=== PATIENT | male | born 1960 | race Caucasian/White ===

== ENCOUNTER → 2016-10-05 | Outpatient (CLI) | payer MEDICAID, OTHER ==
[~2016-10-05] MED LIST: ACET500C PO; ALEV220T14 PO; ASPI325T PO; EXTR500C PO; FOLI1 PO; LEVE500 PO; METH2.5 INJ; PRED20 PO; RANI150T PO; ULTR50TA PO; Z.0.WALKERFOLD
[2016-10-05 14:52] LABS: BICARBONATE 24.7 MEQ/L (21.0-32.0); POTASSIUM 3.8 MEQ/L (3.5-5.1)
== END ==
LOC: CLAB 14:02
PROVIDERS: ATTEND Surgery
DX: I71.4 Abdominal aortic aneurysm, without rupture (principal)
CPT/HCPCS: 36415; 80048

== ENCOUNTER → 2016-10-18 | Outpatient (CLI) | payer MEDICAID, OTHER ==
[~2016-10-18] MED LIST changes: +IOHEXOL 350 MG/ML 10 ML VIAL (for RAD DIAG) IV ONE
--- NOTE | 2016-10-18 15:45 | RADRPT ---
EXAM DATE/TIME: 10/18/2016 13:30 [facility] COMPARISON: CT ABDOMEN & PELVIS W CONTRAST, April 07, 2016, 16:06. CT ABDOMEN & PELVIS W CONTRAST, April 13 016, 9:10. CT BRAIN W/O CONTRAST, June 07, 2016, 16:00. INDICATIONS : Aortic aneurysm. IV CONTRAST: 94 cc Omnipaque 350 (iohexol) IV RADIATION DOSE: 11.25 CTDIvol (mGy) MEDICAL HISTORY : Cardiovascular disease. SURGICAL HISTORY : Appendectomy. ENCOUNTER: Initial ACUITY: 1 month PAIN SCALE: 0/10 LOCATION: Bilateral abdomen TECHNIQUE: Volumetric scanning was performed using a multi-row detector CT scanner. The data was post processed with a variety of visualization algorithms including full volume maximum intensity projection, multi -planar sliding thin slab reformation, curved planar reformation, and surface rendering techniques. Using automated exposure control and adjustment of the mA and/or kV according to patient size, radiat ion dose was kept as low as reasonably achievable to obtain optimal diagnostic quality images. FINDINGS: Abdominal aorta: The celiac and SMA origins are widely patent. There are single renal arteries bilaterally. The renal arteries are widely patent. The infrarenal aorta is aneurysmal with a maximum dimension of 5.0 cm. Th e aneurysmal dilation extends down to but does not involve the iliac bifurcation. The KYA is small bu t patent. Pelvis: The common iliac, internal iliac and external iliac circulation demonstrates only mild atheroscleroti c plaquing and is widely patent throughout its course. Right leg: The common femoral and profunda femoral are widely patent. There is an area of mild stenosis at the o rigin of the superficial femoral. The remainder of the SFA is widely patent. The popliteal is widely patent above and below the knee. Distally, all 3 trifurcation vessels are patent. Left leg: The left common femoral and profunda femoral are widely patent. There is minimal stenosis at the orig in of the superficial femoral. The remainder of the SFA and popliteal are widely patent. Distally, th ere is three-vessel runoff down into the foot. CT source data: The appearance of the liver is within normal limits. The examination demonstrates numerous nonenhanci ng low attenuation lesions distributed throughout the spleen. Differential considerations should incl ude sarcoid, inflammatory/infectious processes such as early granulomatous infection and/or fungal in fection. Metastatic disease is a less likely consideration but is not definitively excluded. This was present on previous CT dated 04/07/16 but appears more evident on today's study. This is likely due t o the arterial phase of contrast. There is no retroperitoneal adenopathy. Incidental note is made of multiple bladder diverticuli. CONCLUSION: 1. There is a 5 cm infrarenal aortic aneurysm. The configuration would be amenable to endovascular re pair. 2. Multiple low attenuation lesions distributed throughout the spleen. Differential considerations ar e given above. Anselmo Archer MD on October 18, 2016 at 15:34 Board Certified Radiologist. This report was verified electronically.
== END ==
LOC: HRAD 12:18
PROVIDERS: ATTEND Surgery
DX: I71.4 Abdominal aortic aneurysm, without rupture (principal)
CPT/HCPCS: 75635; Q9967

== ENCOUNTER 2016-12-20 10:35 | Inpatient (IN) | payer MEDICAID, OTHER ==
[~2016-12-20] VITALS: Ht 172.7 cm; Wt 92.1 kg
[2016-12-20] MEDS ORDERED: ACET500C PO (11:04)
[2016-12-20] MEDS ORDERED: ASPI325T PO (11:04)
[2016-12-21] VITALS (11 sets, daily range): BP systolic 102–135; BP diastolic 68–87; PULSE 64–89; RESP 15–18; TEMP 97.6–98.2; O2SAT 94–98
[2016-12-21] MEDS ORDERED: INSULIN HUMAN REGULAR 1,000 UNITS/10 ML VIAL SQ PRN (06:45)
[2016-12-21] MEDS ORDERED: CHLORHEXIDINE GLUCONATE 2 % 1 PACK (2 CLOTHS) TOPICAL PRN (06:45)
[2016-12-21] MEDS ORDERED: LACTATED RINGER'S 1000 ML IV PRN (06:45)
[2016-12-21] MEDS ORDERED: POVIDONE IODINE 5% (ANTISEPSIS KIT) 4 APPLICATIONS EACH NARE PRN (06:45)
[2016-12-21] MEDS ORDERED: METOPROLOL TARTRATE 25 MG TAB PO PRN (06:45)
[2016-12-21] MEDS ORDERED: SODIUM CHLORID 0.9% 500 ML IV PRN (06:45)
[2016-12-21] MEDS ORDERED: HEPARIN SODIUM - IV 10,000 UNITS/10 ML VIAL ONE ×2 (07:34→09:35)
[2016-12-21] MEDS ORDERED: GELFOAM SIZE 100 ONE (07:34)
[2016-12-21] MEDS ORDERED: BUPIVACAINE/EPINEPHRINE 0.5% 50 ML VIAL ONE (07:35)
[2016-12-21] MEDS ORDERED: HEPARIN SODIUM - SQ 10,000 UNITS/ML VIAL ONE (07:35)
[2016-12-21] MEDS ORDERED: THROMBIN (TOPICAL) 5,000 UNIT VIAL ONE (07:35)
[2016-12-21] MEDS ORDERED: ACETAMINOPHEN 1000 MG/100 ML VIAL IV ONE (07:54)
[2016-12-21] MEDS ORDERED: DEXAMETHASONE SOD PHOS 4 MG/ML VIAL ONE (07:54)
[2016-12-21] MEDS ORDERED: fentaNYL CITRATE 250 MCG/5 ML AMP ONE (07:54)
[2016-12-21] MEDS ORDERED: FAMOTIDINE 20 MG/2 ML VIAL ONE (07:54)
[2016-12-21] MEDS ORDERED: MIDAZOLAM HCL 2 MG/2 ML VIAL ONE (07:54)
[2016-12-21] MEDS ORDERED: IOHEXOL 300 MG/ML 50 ML BTL (for RAD DIAG) OTHER ONE (08:20)
[2016-12-21] MEDS ORDERED: ceFAZolin 2 GM PREMIX 50 ML ONE (08:59)
[2016-12-21] MEDS ORDERED: ceFAZolin INJ 1,000 MG VIAL ONE (09:01)
[2016-12-21] MEDS ORDERED: Post-op Orders (for Pharmacy) MISC OTHER ONE (10:34)
[2016-12-21] MEDS ORDERED: *morphine SULFATE 8 MG/ML PERIprocedure ONLY ONE ×3 (10:48→11:09)
--- NOTE | 2016-12-21 11:11 | HHI.PR ---
Immediate Post Op Note Procedure Date: December 21, 2016 Pre Op Diagnosis: (1) AAA (abdominal aortic aneurysm) without rupture Post Op Diagnosis: (1) AAA (abdominal aortic aneurysm) without rupture Surgeon: Matthew Braswell Associate Application Developer(s): Praneeth Oneill Procedure: AAA endovascular repair Findings: Patent enodgraft/no endoleaks Additional Information: NA Complications: None Specimen(s) removed: NA Estimated blood loss: 200 cc Anesthesia: General Drains: None Fluids: 1900 cc IVF Tourniquet time (min at mmHg) NA Patient to: PACU Patient Condition: Good Implant/Devices: Other Date/Time of Procedure: Other Matthew Braswell DO December 21, 2016 11:11
[2016-12-21] MEDS ORDERED: ZOLPIDEM TARTRATE 5 MG TAB PO PRN (11:15)
[2016-12-21] MEDS ORDERED: DEXTROSE 50% IN WATER 50 ML VIAL(D50) IV PUSH PRN (11:15)
[2016-12-21] MEDS ORDERED: ONDANSETRON HCL 4 MG/2 ML VIAL IV PUSH PRN (11:15)
[2016-12-21] MEDS ORDERED: MAGNESIUM HYDROXIDE SUSP 30 ML CUP PO PRN (11:15)
[2016-12-21] MEDS ORDERED: ACETAMINOPHEN 325 MG TAB PO PRN (11:15)
[2016-12-21] MEDS ORDERED: MORPHINE SULFATE 4 MG/ML INJ IV PUSH PRN (11:15)
[2016-12-21] MEDS ORDERED: oxyCODONE/ACETAMINOPHEN 10 MG/325 MG TAB PO PRN (11:15)
[2016-12-21] MEDS ORDERED: oxyCODONE/ACETAMINOPHEN 5 MG/325 MG TAB PO PRN (11:15)
[2016-12-21] MEDS: INSULIN NovoLIN REGULAR SUPPLEMENTAL SCALE SQ SCH ×2 (11:22→18:00)
[2016-12-21] MEDS: SODIUM CHLOR 0.9% 1000 ML INJ 1,000 ML IV SCH ×2 (11:24→21:11)
[2016-12-21] MEDS ORDERED: *HYDROmorphone PF 1 MG VIAL PERIprocedural Use ONLY ONE (11:31)
[2016-12-21] MEDS ORDERED: PHENYLEPH/NS 1000 MCG/10 ML SYR IV ONE (12:00)
[2016-12-21] MEDS ORDERED: SODIUM CHLORID 0.9% 500 ML INJ 500 ML IV ONE (12:00)
[2016-12-21] MEDS ORDERED: IOHEXOL 300 MG/ML 50 ML BTL (for RAD DIAG) IV ONE (12:00)
[2016-12-21] MEDS ORDERED: ONDANSETRON HCL 4 MG/2 ML VIAL IV PUSH ONE (12:00)
[2016-12-21] MEDS ORDERED: PROPOFOL 200 MG/20 ML AMP IV ONE (12:00)
[2016-12-21] MEDS ORDERED: NORMOSOL R INJ 1,000 ML IV ONE (12:00)
[2016-12-21] MEDS ORDERED: NEOSTIGMINE 3 MG/3 ML SYR IV ONE (12:00)
[2016-12-21] MEDS ORDERED: PROTAMINE SULFATE 50 MG/5 ML VIAL IV ONE (12:00)
--- NOTE | 2016-12-21 12:25 | MA ---
cc: MIGUELITO MITCHELL DATE: 12/21/2016 PREOPERATIVE DIAGNOSIS Abdominal aortic aneurysm, infrarenal. POSTOPERATIVE DIAGNOSIS Abdominal aortic aneurysm, infrarenal. PROCEDURE [place] excluder endo graft device endoprosthesis with a left ipsilateral main body with a 26 x 12 x 14, and on the contralateral leg is a 12 mm x 10 cm. Nonselective catheter placement in the aorta, [address], and then a modular bifurcated prosthesis to one limb, 91254. SURGEON French MOLECULAR BIOLOGIST Praneeth Mackey IV FLUIDS 1900 cc crystalloid. ESTIMATED BLOOD LOSS Approximately 200 cc. URINE OUTPUT 500 cc. COMPLICATIONS None. DISPOSITION To PACU. DETAILS OF PROCEDURE The patient was prepped from the nipples to the knees after being under general endotracheal anesthesia and getting perioperative IV antibiotics with two grams of Ancef. I used ultrasound to get access to the bilateral groins with an 18-gauge needle and I exchanged over a braided wire for a 7-Kiswahili sheath. I did place two Perclose devices on each side before going this. Once I had access to the vessels we exchanged for a 16-Kiswahili on the left and a 12-Kiswahili dry sterile sheath on the right and then advanced an Omni Flush catheter up the right. We then exchanged for a Stiff Amplatz wire bilaterally. We then advanced the main body up the 26 x 12 x 14 on the left. After we advanced the main body around where we suspected the renal arteries would be, we shot an AP aortogram. We then partially deployed the main body from below the renal arteries down. I then cannulated the contralateral gate with an Omni Flush catheter and a stiff angled Glidewire. Once I cannulated the gate then I exchanged for an Amplatz wire. The catheter spun inside the endo graft, then advanced it an up and shot another aortogram to make sure that the device was below the renal arteries. It was slightly high so I recaptured it and pulled it down a few millimeters. After I pulled it down we shot another aortogram which showed that it was in an appropriate location. We then shot a pelvic arteriogram with a retrograde shot and then deployed a 12 x 4 mm x 10 cm graft to make sure we were above the hypogastric arteries. Once we did this we finally deployed the device and then used a balloon on both sides after the deployment. We shot a completion angiogram which showed no endoleak and the endo graft was indeed sealed. There was good blood flow through the device. At the end of the case we did remove our sheaths over wires and made sure there was no drop in blood pressure. We then cinched down our Perclose devices on both sides. After we did that there was some minimal oozing on the left and not on the right. We then applied dressings to the bilateral groins. We were able to hear strong pedal signals bilaterally. At the end of the case the patient was extubated. DO RENEE Rogers/RICHY /10:11 AM /12:07 PM
[2016-12-21] MEDS: ceFAZolin 2 GM PREMIX 50 ML IV SCH (17:35)
[2016-12-21] MEDS ORDERED: PANTOPRAZOLE SOD 40 MG DELAYED RELEASE TAB PO SCH (21:00)
[2016-12-21] MEDS ORDERED: DOCUSATE CALCIUM 240 MG CAP PO SCH (21:00)
--- NOTE | 2016-12-21 21:01 | PD.VS.PN ---
Subjective POD #: 0 Procedure(s): endovascular AAA repair Subjective/Hospital Course Without complaints. Objective Vascular: groins bilateral without swelling and bandages in place. pedal triphasic signals bilaterally. Assessment and Plan Assessment: (1) AAA (abdominal aortic aneurysm) without rupture Status: Acute Plan 56 year old male with family hx of ruptured AAA in family status post EVAR for infrarenal AAA. Patient without complaints. advance diet and Discontinue grubbs in AM. Matthew Braswell DO, FACS [facility] /Matthew Clark DO December 21, 2016 21:01
[2016-12-22] VITALS (16 sets, daily range): BP systolic 99–121; BP diastolic 59–72; PULSE 65–82; RESP 16; TEMP 98–98.2; O2SAT 97–100
[2016-12-22] MEDS: ceFAZolin 2 GM PREMIX 50 ML IV SCH ×2 (00:02→09:09)
[2016-12-22] MEDS: INSULIN NovoLIN REGULAR SUPPLEMENTAL SCALE SQ SCH ×3 (06:00→12:00)
[2016-12-22] MEDS: SODIUM CHLOR 0.9% 1000 ML INJ 1,000 ML IV SCH (07:11)
[2016-12-22 08:34] LABS: ANION GAP 11 MEQ/L (5-15); AST (GOT) 13 U/L (15-37); BICARBONATE 23.9 MEQ/L (21.0-32.0); CHLORIDE 107 MEQ/L (98-107); GLOMERULAR FILTRATION RATE 96 ML/MIN (>89); POTASSIUM 4.1 MEQ/L (3.5-5.1); SODIUM (NA) 142 MEQ/L (136-145)
[2016-12-22 08:36] LABS: ALKALINE PHOSPHATASE 64 U/L (45-117); ALT (GPT) 17 U/L (12-78); TOTAL BILIRUBIN ADULT 0.4 MG/DL (0.2-1.0)
[2016-12-22 08:51] LABS: BLOOD UREA NITROGEN 11 MG/DL (7-18)
[2016-12-22] MEDS ORDERED: ASPIRIN EC 325 MG TABEC PO SCH (09:00)
--- NOTE | 2016-12-22 10:45 | PD.VS.DC ---
Discharge Summary Admission Date: December 21, 2016 at 05:55 Discharge Date: December 22, 2016 Admission Diagnosis: (1) AAA (abdominal aortic aneurysm) without rupture Discharge Diagnosis: (1) AAA (abdominal aortic aneurysm) without rupture Status: Chronic Brief History from admission kristyn po and urinating. Procedure(s): endovascular AAA repair Significant Findings Laboratory Tests Test 12/22/16 07:53 Aspartate Amino Transf 13 U/L (15-37) (AST/SGOT) Albumin 2.8 GM/DL (3.4-5.0) Hospital Course: uncomplicated Discharge Condition: Good Discharge Disposition: Discharge Home Discharge Instructions: light activity, no driving. Follow up next week in office. Any questions or concerns: Call [facility] [phone] Matthew Braswell DO December 22, 2016 10:45
== END 2016-12-22 14:10 | disposition home or self-care (01) | DRG 269 ==
LOC: HSDI 12-21 05:55 → HCIN 12-21 12:27
PROVIDERS: ADMIT Surgery; ATTEND Surgery
PROC: 04V03DZ Restriction of Abdominal Aorta with Intraluminal Device, Percutaneous Approach (ICD-10-PCS; principal; 2016-12-21 08:08)
DX: I71.4 Abdominal aortic aneurysm, without rupture (principal); M19.90 Unspecified osteoarthritis, unspecified site; Z79.82 Long term (current) use of aspirin
CPT/HCPCS: 75630; 76937; 80053; 82948; 94150; C1725; C1769; J0131; J0690; J1100; J1170; J1644; J2250; J2270; J2370; J2405; J2710; J2720; J3010; J7030; J7040; J7120; Q9967

== ENCOUNTER → 2016-12-20 | Outpatient (CLI) | payer MEDICAID, OTHER ==
[~2016-12-20] MED LIST changes: -IOHEXOL 350 MG/ML 10 ML VIAL (for RAD DIAG) IV ONE
[2016-12-20 11:13] LABS: HEMATOCRIT 37.5 % (39.0-51.0); MEAN CELL VOLUME 78.9 FL (80.0-100.0); MEAN CORPUSCULAR HEMOGLOBIN 25.4 PG (27.0-34.0); MEAN CORPUSCULAR HGB CONC 32.2 % (32.0-36.0); PLATELET COUNT 280 TH/MM3 (150-450); RED BLOOD COUNT 4.76 MIL/MM3 (4.50-5.90); RED CELL DISTRIBUTION WIDTH 18.6 % (11.6-17.2); REVIEW FLAG FINAL; WHITE BLOOD COUNT 10.1 TH/MM3 (4.0-11.0)
--- NOTE | 2016-12-20 11:45 | RADRPT ---
EXAM DATE/TIME: 12/20/2016 11:29 [facility] COMPARISON: CTA RUNOFF W 3D RECON, October 18, 2016, 13:30. CHEST SINGLE AP, April 26, 2016, 6:07. INDICATIONS : Evaluate for pneumonia, pneumothorax and communicable diseases. Pre-op AAA MEDICAL HISTORY : None. SURGICAL HISTORY : None. ENCOUNTER: Initial ACUITY: 1 day PAIN SCORE: 0/10 LOCATION: chest FINDINGS: Mild infiltrate seen left lower lobe. Right lung is clear. No pleural effusion or pneumothorax on eit her side. Heart size stable, normal. CONCLUSION: Mild left lower lobe consolidation. Henrique Hays MD on December 20, 2016 at 11:41 Board Certified Radiologist. This report was verified electronically.
[2016-12-20 12:31] LABS: BLOOD, URINE NEG (NEG); COMMENT (UR) CULT NOT INDICATED; CULTURE IF INDICATED CULT NOT INDICATED; GLUCOSE,URINE NEG (NEG); KETONE, URINE NEG (NEG); NITRITE,URINE NEG (NEG); PH, URINE 5.5 (5.0-8.5); URINE COLOR YELLOW (YELLW/STRAW)
--- NOTE | 2016-12-21 15:50 | EKG ---
Date Performed: 12/20/2016 Time Performed: 10:53:16 PTAGE: 56 years EKG: Sinus rhythm NORMAL ECG PREVIOUS TRACING : 06/07/2016 16.28 DOCTOR: Lamont Wong Interpretating Date/Time 12/21/2016 15:41:19
== END ==
LOC: CPRE 10:32
PROVIDERS: ATTEND Surgery
DX: Z01.812 Encounter for preprocedural laboratory examination (principal); Z01.810 Encounter for preprocedural cardiovascular examination; Z01.811 Encounter for preprocedural respiratory examination; I73.9 Peripheral vascular disease, unspecified
CPT/HCPCS: 36415; 71020; 80048; 81001; 85027; 86850; 86900; 86901; 93005

== ENCOUNTER 2017-04-19 19:34 | Emergency (ER) | payer MEDICAID ==
[~2017-04-19 19:34] MED LIST changes: -ALEV220T14 PO; -EXTR500C PO; -FOLI1 PO; -LEVE500 PO; -METH2.5 INJ; -PRED20 PO; -RANI150T PO; -ULTR50TA PO; -Z.0.WALKERFOLD
[2017-04-19 19:36] VITALS: BP 154/103; PULSE 97; RESP 16; TEMP 98.9; O2SAT 97
[2017-04-19] MEDS ORDERED: FOLI800T PO (21:39)
[2017-04-19] MEDS ORDERED: METH2.5T PO (21:39)
[2017-04-19 21:49] VITALS: BP 139/80; PULSE 83; RESP 16; O2SAT 98
[2017-04-19 21:55] VITALS: O2SAT 98
[2017-04-19] MEDS ORDERED: SODIUM CHLOR 0.9% 1000 ML INJ 1,000 ML IV ONE (22:00)
[2017-04-19] MEDS ORDERED: methylPREDNISolone SOD SUCC 125 MG/2 ML VIAL IV PUSH ONE (22:00)
[2017-04-19] MEDS ORDERED: SODIUM CHLORIDE 0.9% FLUSH 10 ML FLUSH IVF PRN (22:00)
[2017-04-19 22:15] LABS: BASOPHIL # 0.1 TH/MM3 (0-0.2); BASOPHIL % 1.1 % (0.0-2.0); EOSINOPHIL # 0.4 TH/MM3 (0-0.4); EOSINOPHIL % 3.7 % (0.0-4.0); HEMO FLAGS DIFF FINAL; LYMPH % 20.1 % (9.0-44.0); LYMPHOCYTE # 2.3 TH/MM3 (1.0-4.8); MEAN CELL VOLUME 76.2 FL (80.0-100.0); MEAN CORPUSCULAR HEMOGLOBIN 23.9 PG (27.0-34.0); MEAN CORPUSCULAR HGB CONC 31.4 % (32.0-36.0); MONO % 5.9 % (0.0-8.0); NEUT % 69.2 % (16.0-70.0); PLATELET COUNT 508 TH/MM3 (150-450); RED BLOOD COUNT 5.12 MIL/MM3 (4.50-5.90); RED CELL DISTRIBUTION WIDTH 16.9 % (11.6-17.2); WHITE BLOOD COUNT 11.5 TH/MM3 (4.0-11.0)
[2017-04-19] MEDS ORDERED: HYDROmorphone HCL PF 1 MG/ML VIAL IV PUSH ONE ×2 (22:15→23:00)
--- NOTE | 2017-04-19 22:38 | PD ---
HPI Chief Complaint: General Weakness Time Seen by Provider: 21:37 Travel History International Travel<30 days: No Contact w/Intl Traveler<30days: No Traveled to known affect area: No History of Present Illness HPI 56-year-old male arrives complaining of total body pain and weakness. He has a history of rheumatoid disease. He reports over the last few days he has had markedly increased weakness especially involving the legs. He states that he felt similarly weak following discharge from here after an admission for sepsis. He reports starting methotrexate about a week ago for rheumatoid disease. No fever. No shortness of breath. No vomiting or diarrhea. No abdominal pain. PFSH Past Medical History Arthritis: Yes Cancer: No Cardiovascular Problems: Yes (AAA) Cerebrovascular Accident: Yes (POSSIBLE STROKE) Diabetes: No Endocrine: No Genitourinary: No Hepatitis: No Hiatal Hernia: No Immune Disorder: Yes (RA) Medical other: Yes (SEPSIS IN MARCH 2016) Musculoskeletal: Yes (RA) Neurologic: No Psychiatric: No Reproductive: No Respiratory: No Thyroid Disease: No Past Surgical History Abdominal Surgery: Yes (APPENDECTOMY) AICD: No Appendectomy: Yes Body Medical Devices: NONE Cardiac Surgery: No Ear Surgery: No Endocrine Surgery: No Eye Surgery: No Genitourinary Surgery: No Gynecologic Surgery: No Joint Replacement: No Oral Surgery: Yes (TONSILLECTOMY) Pacemaker: No Thoracic Surgery: No Tonsillectomy: Yes Other Surgery: Yes (AAA REPAIR 4 MONTHS AGO) Social History Alcohol Use: Yes (occasional) Tobacco Use: Yes (1PPD ) Substance Use: No Allergies-Medications (Allergen,Severity, Reaction): Coded Allergies: No Known Allergies (Unverified , 04/19/17) Reported Meds & Prescriptions Reported Meds & Active Scripts Active Prednisone 20 Mg Tab 40 Mg PO DAILY 4 Days Take 40 mg (2 tablets) daily for 5 days Percocet (Oxycodone-Acetaminophen) 5-325 mg Tab 2 Tab PO Q6H PRN Reported Folic Acid 0.8 Mg Tab 800 Mcg PO DAILY Methotrexate 2.5 Mg Tab 7.5 Mg PO Q7D Aspirin 325 Mg Tab 325 Mg PO DAILY Review of Systems Except as stated in HPI: all other systems reviewed are Neg General / Constitutional: No: Fever Cardiovascular: No: Chest Pain or Discomfort Physical Exam Narrative GENERAL: Well-nourished well-developed 56-year-old male SKIN: Warm and dry. HEAD: Atraumatic. Normocephalic. EYES: Pupils equal and round. No scleral icterus. No injection or drainage. ENT: No nasal bleeding or discharge. Mucous membranes pink and moist. NECK: Trachea midline. No JVD. CARDIOVASCULAR: Regular rate and rhythm. RESPIRATORY: No accessory muscle use. Clear to auscultation. Breath sounds equal bilaterally. GASTROINTESTINAL: Abdomen soft, non-tender, nondistended. Hepatic and splenic margins not palpable. MUSCULOSKELETAL: Extremities without clubbing, cyanosis, or edema. No obvious deformities. Ulnar deviation with a chronic arthritic change about the upper and lower extremities. NEUROLOGICAL: Awake and alert. No obvious cranial nerve deficits. Motor grossly within normal limits. Five out of 5 muscle strength in the arms and legs. Normal speech. PSYCHIATRIC: Appropriate mood and affect; insight and judgment normal. Data Data Last Documented VS Vital Signs Date Time Temp Pulse Resp B/P (MAP) Pulse Ox O2 Delivery O2 Flow Rate FiO2 04/20/17 00:43 04/19/17 21:55 98 Room Air 04/19/17 21:49 83 16 04/19/17 19:36 98.9 139/80 Orders Orders Electrocardiogram (04/19/17 21:49) Basic Metabolic Panel (Bmp) (04/19/17 21:49) Complete Blood Count With Diff (04/19/17 21:49) Chest, Single Ap (04/19/17 21:49) Ecg Monitoring (04/19/17 21:49) Iv Access Insert/Monitor (04/19/17 21:49) Oximetry (04/19/17 21:49) Oxygen Administration (04/19/17 21:49) Sodium Chloride 0.9% Flush (Ns Flush) (04/19/17 22:00) Sodium Chlor 0.9% 1000 Ml Inj (Ns 1000 M (04/19/17 22:00) Methylprednisolone So Succ Inj (Solumedr (04/19/17 22:00) Hydromorphone Pf Inj (Dilaudid Pf Inj) (04/19/17 22:15) Westergren Sedimentation Rate (04/19/17 22:06) Hydromorphone Pf Inj (Dilaudid Pf Inj) (04/19/17 23:00) Labs Laboratory Tests Test 04/19/17 21:55 White Blood Count 11.5 TH/MM3 Red Blood Count 5.12 MIL/MM3 Hemoglobin 12.3 GM/DL Hematocrit 39.0 % Mean Corpuscular Volume 76.2 FL Mean Corpuscular Hemoglobin 23.9 PG Mean Corpuscular Hemoglobin Concent 31.4 % Red Cell Distribution Width 16.9 % Platelet Count 508 TH/MM3 Mean Platelet Volume 8.1 FL Neutrophils (%) (Auto) 69.2 % Lymphocytes (%) (Auto) 20.1 % Monocytes (%) (Auto) 5.9 % Eosinophils (%) (Auto) 3.7 % Basophils (%) (Auto) 1.1 % Neutrophils # (Auto) 8.0 TH/MM3 Lymphocytes # (Auto) 2.3 TH/MM3 Monocytes # (Auto) 0.7 TH/MM3 Eosinophils # (Auto) 0.4 TH/MM3 Basophils # (Auto) 0.1 TH/MM3 CBC Comment DIFF FINAL Differential Comment Erythrocyte Sedimentation Rate 45 mm/hr Blood Urea Nitrogen 15 MG/DL Creatinine 1.04 MG/DL Random Glucose 80 MG/DL Calcium Level 9.3 MG/DL Sodium Level 138 MEQ/L Potassium Level 4.2 MEQ/L Chloride Level 102 MEQ/L Carbon Dioxide Level 26.0 MEQ/L Anion Gap 10 MEQ/L Estimat Glomerular Filtration Rate 74 ML/MIN MDM Medical Decision Making Medical Screen Exam Complete: Yes Emergency Medical Condition: Yes Medical Record Reviewed: Yes Differential Diagnosis Rheumatoid flare, pneumonia, renal failure, side effect from methotrexate, Guillan Barrre, Polyinflamatory neuropathy Narrative Course CBC & BMP Diagram 04/19/17 21:55 Calcium Level 9.3 ESR 45 The patient is resting comfortably and feels better, is alert and in no distress. The patients results and examination findings were discussed. The repeat examination is unremarkable and benign. The history, exam, diagnostic testing, and current condition do not suggest any significant pathology to warrant further testing, continued ED treatment, admission, or surgical evaluation at this point. The vital signs have been stable. The patient does not have uncontrollable pain, intractable vomiting, or other significant symptoms. The patient's condition is stable and appropriate for discharge. The patient will pursue further outpatient evaluation with a primary care physician or other designated or consulting physician as indicated in the discharge instructions. The patient expressed understanding and was agreeable with this plan. Diagnosis Primary Impression: Pain Referrals: Primary Care Physician 2 days Materials Engineering Technician 2 days Additional Instructions: You have a choice when it comes to health care, and we are glad that you chose [facility]. Hopefully, we have met your expectations on today's visit. You are welcome to return to [facility] at any time, as we are committed to meeting the health care needs of our community. Med/Other Pt SpecificInfo: Prescription(s) given Scripts Prednisone (Prednisone) 20 Mg Tab 40 MG PO DAILY for 4 Days, #10 TAB 0 Refills Take 40 mg (2 tablets) daily for 5 days Prov: Anselmo Albarran MD 04/19/17 Oxycodone-Acetaminophen (Percocet) 5-325 mg Tab 2 TAB PO Q6H Y for PAIN SCALE 6 TO 10, #20 TAB 0 Refills Prov: Anselmo Albarran MD 04/19/17 Disposition: 01 DISCHARGE HOME Condition: Stable Anselmo Albarran MD Apr 19, 2017 22:38
[2017-04-19 22:45] LABS: POTASSIUM 4.2 MEQ/L (3.5-5.1)
--- NOTE | 2017-04-19 23:43 | RADRPT ---
EXAM DATE/TIME: 04/19/2017 22:14 [facility] COMPARISON: CHEST PA & LAT, December 20, 2016, 11:29. CHEST SINGLE AP, April 26, 2016, 6:07. INDICATIONS : Short of breath. MEDICAL HISTORY : None. SURGICAL HISTORY : Abdominal aortic aneurysm repair. ENCOUNTER: Initial ACUITY: 3 days PAIN SCORE: 0/10 LOCATION: Bilateral chest FINDINGS: A single view of the chest demonstrates a persistent area of consolidation or atelectasis at the left base. The right lung is clear. The cardiomediastinal contours are unremarkable. Osseous structures are intact. CONCLUSION: Persistent atelectasis or consolidation at the left base. Henrique Gomez MD on April 19, 2017 at 23:40 Board Certified Radiologist. This report was verified electronically.
[2017-04-19] MEDS ORDERED: PERC5TAB12 PO (23:59)
[2017-04-19] MEDS ORDERED: PRED20 PO (23:59)
--- NOTE | 2017-04-20 09:25 | EKG ---
Date Performed: 04/19/2017 Time Performed: 21:43:25 PTAGE: 56 years EKG: Sinus rhythm NORMAL ECG PREVIOUS TRACING : 12/20/2016 10.53 DOCTOR: Tremayne Heath Interpretating Date/Time 04/20/2017 09:23:25
== END 2017-04-20 00:44 | disposition home or self-care (01) ==
LOC: NEPE 19:34
DX: R52 Pain, unspecified (principal); R53.1 Weakness; M06.9 Rheumatoid arthritis, unspecified; F17.200 Nicotine dependence, unspecified, uncomplicated; Z87.39 Personal history of other diseases of the musculoskeletal system and connective tissue; Z86.79 Personal history of other diseases of the circulatory system
CPT/HCPCS: 71010; 80048; 85025; 85652; 93005; 96361; 96374; 96375; 96376; 99285; J1170; J2930; J7030